=== PATIENT | female | born 2000 | race Caucasian/White ===

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

== ENCOUNTER → 2018-04-30 | Outpatient (CLI) | payer MEDICAID, OTHER | END | disposition home or self-care (01) | LOC: LABWHC1 09:45 | PROVIDERS: ATTEND Internal Medicine Endocrinology, Diabetes & Metabolism | DX: E03.8 Other specified hypothyroidism (principal) | CPT/HCPCS: 36415; 84443 ==

== ENCOUNTER → 2018-05-04 | Outpatient (CLI) | payer MEDICAID ==
--- NOTE | 2018-05-04 11:03 | US ---
EXAMINATION TYPE: US thyroid st tissue head/neck DATE OF EXAM: 05/04/2018 COMPARISON: NONE CLINICAL HISTORY: E03.8 HYPOTHYROIDISM. Patient on thyroid medications. GLAND SIZE: Right Lobe: 3.2 x 1.0 x 1.1 cm Overall Parenchyma: homogenous Left Lobe: 2.7 x 0.9 x 0.8 cm Overall Parenchyma: homogeneous Isthmus Thickness: 0.2 cm NODULES RIGHT: # of nodules measured on right: 0 LEFT: # of nodules measured on left: 0 ISTHMUS: # of nodules measured in the isthmus: 0 Bilateral neck scanned. Prominent lymph node seen in left neck 1.9 x 1.0 x 0.7 cm. IMPRESSION: No distinct abnormality appreciated.
== END | disposition home or self-care (01) ==
LOC: RADUSWWP 10:30
PROVIDERS: ATTEND Internal Medicine Endocrinology, Diabetes & Metabolism
DX: E03.8 Other specified hypothyroidism (principal)
CPT/HCPCS: 76536

== ENCOUNTER → 2018-10-05 | Outpatient (CLI) | payer MEDICAID, OTHER ==
[2018-10-05 20:08] LABS: T4, Free (Free Thyroxine) 1.1 ng/dL (0.83-1.43)
== END | disposition home or self-care (01) ==
LOC: LABWHC1 11:30
PROVIDERS: ATTEND Internal Medicine Endocrinology, Diabetes & Metabolism
DX: E03.9 Hypothyroidism, unspecified (principal)
CPT/HCPCS: 36415; 84439; 84443

== ENCOUNTER → 2019-11-26 | Outpatient (CLI) | payer MEDICAID, OTHER ==
[2019-11-26 16:06] LABS: T4, Free (Free Thyroxine) 1.4 ng/dL (0.80-1.80)
== END | disposition home or self-care (01) ==
LOC: LABWHC1 09:49
PROVIDERS: ATTEND Internal Medicine
DX: E03.9 Hypothyroidism, unspecified (principal)
CPT/HCPCS: 36415; 84439; 84443

== ENCOUNTER → 2021-02-26 | Outpatient (CLI) | payer MEDICAID, OTHER ==
[2021-02-27 12:39] LABS: T4, Free (Free Thyroxine) 1.2 ng/dL (0.80-1.80)
== END | disposition home or self-care (01) ==
LOC: LABWHC1 16:26
PROVIDERS: ATTEND Internal Medicine
DX: E03.9 Hypothyroidism, unspecified (principal)
CPT/HCPCS: 36415; 84439; 84443

== ENCOUNTER → 2021-02-26 | Outpatient (CLI) | payer MEDICAID, OTHER ==
[2021-02-26 23:34] LABS: HCT 46.4 % (37.2-46.3); HGB 14.2 g/dL (12.0-15.0); MCH 27.7 pg (27.0-32.0); MCHC 30.6 g/dL (32.0-37.0); MCV 90.6 fL (80.0-97.0); Mean Platelet Volume 12.2 fL (9.5-12.2); Platelet Count 211 X 10*3/uL (140-440); RBC 5.12 X 10*6/uL (4.10-5.20); RDW 13.2 % (11.5-14.5); WBC 7.01 X 10*3/uL (4.50-10.00)
== END | disposition home or self-care (01) ==
LOC: LABWHC1 16:20
PROVIDERS: ATTEND Pediatrics
DX: Z01.812 Encounter for preprocedural laboratory examination (principal)
CPT/HCPCS: 36415; 85027

== ENCOUNTER 2021-03-01 06:30 | Day surgery (SDC) | payer MEDICAID, OTHER ==
[~2021-03-01 06:30] MED LIST changes: -DEXAMETHASONE SOD PHOSPHATE 10 MG/ML 1 ML VIAL IV ONE; +DEXAMETHASONE SOD PHOSPHATE 4 MG/ML 1 ML VIAL IV ONE; +HYDROmorphone 0.5 MG/0.5 ML SYRINGE IVP PRN; -HYDROmorphone 1 MG/ML 1 ML SYRINGE IVP PRN; +LIDOCAINE 1% (10MG/ML) FOR IV START INTRADERMA PRN; -LIDOCAINE 1% 20 ML VIAL (10MG/ML) FOR IV START INTRADERMA PRN; -SCOPOLAMINE 1.5MG/72HR PATCH TRANSDERM ONE; +metroNIDAZOLE-NS PMX 500 MG in SALINE 1 100ML.BAG IVPB PRN
[2021-03-01] MEDS ORDERED: DEXAMETHASONE SOD PHOSPHATE 10 MG/ML 1 ML VIAL ONE (07:30)
[2021-03-01] MEDS ORDERED: ONDANSETRON 4 MG/2 ML VIAL ONE (07:30)
[2021-03-01] MEDS ORDERED: SUCCINYLCHOLINE CHLORIDE 100 MG/5 ML SYR IV ONE (07:30)
[2021-03-01] MEDS ORDERED: fentaNYL (PF) 50 MCG/ML 2 ML AMP ONE (07:30)
[2021-03-01] MEDS ORDERED: PROPOFOL 10 MG/ML 20 ML VIAL IV ONE (07:30)
[2021-03-01] MEDS ORDERED: LACTATED RINGERS 1,000 ML IV ONE (07:35)
[2021-03-01 09:29] VITALS: TEMP 96.8
--- NOTE | 2021-03-01 10:01 | P.GSCN ---
History of Present Illness Consult date: 03/01/21 Reason for Consult: -Periodic exam -4 BWS -5 PA of wisdom teeth and #9 -#9 RCT. Filed to ML2, rinsed with NAOCL, dried with Paper Points -#9 Final Fill with Junaid Percha size ML2, 17 mm. -#9 Post & Core with Filteck Wheelwright shade A2 and Post size #2 -#9 2 pins placed Post op Rx called for Amoxicillin liquid form equivalent to 500mg, QID for one week. Citanest Forte 4% 1 carpule local infiltration given in #9 area. Pt's father asked to check occlusion for us as we were unable to do in OR due to intubation. He will call if there is any pain por concern, or if he find #9 high on occlusion. 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 AMBulatory but IS MORE COMFORTABLE IN WHEEL CHAIR IF WALKING LONG DISTANCES. Scarring to skins- picks at skin. BORN WITH SMALL KIDNEYS, FUNCTIONINAL AT ACCEPTABLE LEVELS. History of Any Multi-Drug Resistant Organisms: None Reported Past Surgical History: Adenoidectomy, Hernia Repair, Tonsillectomy Additional Past Surgical History / Comment(s): dental procedures,Kidney studies and ct's,brain scans under anesthesia Past Anesthesia/Blood Transfusion Reactions: Family History of Problems w/ Anesthesia, Motion Sickness, Postoperative Nausea & Vomiting (PONV) Additional Past Anesthesia/Blood Transfusion Reaction / Comm: In past has had lethal breath holding episodes after anesthesia-has had dental procedures here at [facility] without problems in past,no blood transfusion hx,mother has ponv Additional Psychological History / Comment(s): Developmental/Global Delays Smoking Status: Never smoker Past Alcohol Use History: None Reported Past Drug Use History: None Reported - Past Family History Mother Family Medical History: No Reported History Father Additional Family Medical History / Comment(s): heart problems Medications and Allergies Home Medications Medication Instructions Recorded Confirmed Type Ascorbic Acid [Vitamin C] 500 mg PO DAILY 02/25/17 03/01/21 History Potassium 99 mg PO DAILY 02/25/17 03/01/21 History Levothyroxine Sodium 88 mcg PO QAM 02/25/21 03/01/21 History Zinc 1 tab PO DAILY 02/25/21 03/01/21 History Allergies Allergy/AdvReac Type Severity Reaction Status Date / Time adhesive Allergy skin Verified 03/01/21 06:53 irritation latex Allergy red skin Verified 03/01/21 06:53 Surgical - Exam Vital Signs Temp Pulse Resp BP Pulse Ox 98.3 F 85 18 162/91 97 03/01/21 06:51 03/01/21 06:51 03/01/21 06:51 03/01/21 06:51 03/01/21 06:51
[2021-03-01 10:57] VITALS: BP 139/72; PULSE 59; RESP 20
== END 2021-03-01 11:25 | disposition home or self-care (01) ==
LOC: OR 06:30
PROVIDERS: ATTEND Dentist
DX: K01.1 Impacted teeth (principal); J45.909 Unspecified asthma, uncomplicated; E07.9 Disorder of thyroid, unspecified; Q91.7 Trisomy 13, unspecified; Z79.899 Other long term (current) drug therapy
CPT/HCPCS: 41899; 81025; J1100; J2405; J3010; J0330; J2704

== ENCOUNTER → 2022-02-03 | Outpatient (CLI) | payer MEDICAID, OTHER | END | disposition home or self-care (01) | LOC: LABWHC1 13:22 | PROVIDERS: ATTEND Internal Medicine | DX: E03.9 Hypothyroidism, unspecified (principal); E55.9 Vitamin D deficiency, unspecified | CPT/HCPCS: 36415; 82306; 84443 ==

== ENCOUNTER → 2023-04-14 | Outpatient (CLI) | payer MEDICAID, OTHER ==
[2023-04-14 11:38] LABS: Basophils % (A) 0 %; Eosinophils # (A) 0.1 k/uL (0-0.7); Eosinophils % (A) 1 %; HCT 48.5 % (34.0-46.0); HGB 15.3 gm/dL (11.4-16.0); Hypochromasia Slight; Lymphocytes # (A) 1.8 k/uL (1.0-4.8); Lymphocytes % (A) 30 %; MCHC 31.5 g/dL (31.0-37.0); MCV 89.1 fL (80.0-100.0); Mean Platelet Volume 8.9; Monocytes # (A) 0.3 k/uL (0-1.0); Monocytes % (A) 5 %; Neutrophils # (A) 3.9 k/uL (1.3-7.7); Neutrophils % (A) 62 %; Platelet Count 164 k/uL (150-450); RBC 5.44 m/uL (3.80-5.40); RDW 14.7 % (11.5-15.5); WBC 6.2 k/uL (3.8-10.6)
[2023-04-14 12:03] LABS: ALT 22 U/L (4-34); AST 29 U/L (14-36); African American GFR (CKD) >90 (>60 ml/min/1.73 sqM); Albumin 4.5 g/dL (3.5-5.0); Albumin/Globulin Ratio 1.3; Alkaline Phosphatase 87 U/L (38-126); Anion Gap 12 mmol/L; Blood Urea Nitrogen 23 mg/dL (7-17); Calcium 9.1 mg/dL (8.4-10.2); Carbon Dioxide 25 mmol/L (22-30); Chloride 103 mmol/L (98-107); Globulin 3.6 g/dL; Glucose 81 mg/dL (74-99); Non-African American GFR(CKD) 88 (>60 ml/min/1.73 sqM); Potassium 4.1 mmol/L (3.5-5.1); Sodium 140 mmol/L (137-145); Total Bilirubin 0.4 mg/dL (0.2-1.3); Total Protein 8.1 g/dL (6.3-8.2)
[2023-04-14 12:17] LABS: T4, Free (Free Thyroxine) 1.13 ng/dL (0.78-2.19)
[2023-04-14 17:26] LABS: Ferritin 25.9 ng/mL (10.0-291.0)
== END | disposition home or self-care (01) ==
LOC: LABWHC1 10:33
PROVIDERS: ATTEND Internal Medicine
DX: E03.9 Hypothyroidism, unspecified (principal); E66.8 Other obesity; E55.9 Vitamin D deficiency, unspecified
CPT/HCPCS: 36415; 80053; 82306; 82728; 83036; 84439; 84443; 85025

== ENCOUNTER 2024-01-20 19:59 | Emergency (ER) | payer MEDICAID, OTHER ==
[2024-01-20 20:14] VITALS: BP 161/99; PULSE 82; RESP 18; TEMP 99.4
--- NOTE | 2024-01-20 21:04 | ED ---
General Adult HPI - General Chief complaint: Recheck/Abnormal Lab/Rx Stated complaint: poss cellulitis, sent by [facility] Time Seen by Provider: 01/20/24 20:18 Source: patient, family, RN notes reviewed Mode of arrival: ambulatory Limitations: no limitations - History of Present Illness Initial comments: 23-year-old female presents to the emergency department for evaluation of left lower extremity swelling and redness. Patient was sent in by urgent care. Jd rosario's family states that she had an injury to this leg 10 days ago which has been healing well. They state that last night they noticed some redness and warmth to the leg. Denies fever, chills, nausea, vomiting. No known medication allergies. - Related Data Home Medications Medication Instructions Recorded Confirmed Ascorbic Acid [Vitamin C] 500 mg PO DAILY 02/25/17 03/01/21 Potassium 99 mg PO DAILY 02/25/17 03/01/21 Levothyroxine Sodium 88 mcg PO QAM 02/25/21 03/01/21 Zinc 1 tab PO DAILY 02/25/21 03/01/21 Previous Rx's Medication Instructions Recorded cephALEXin [Keflex Oral Susp] 500 mg PO Q6HR #400 ml 01/20/24 Allergies Allergy/AdvReac Type Severity Reaction Status Date / Time adhesive Allergy skin Verified 01/20/24 20:14 irritation latex Allergy red skin Verified 01/20/24 20:14 Review of Systems ROS Statement: Those systems with pertinent positive or pertinent negative responses have been documented in the HPI. ROS Other: All systems not noted in ROS Statement are negative. 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 AMBulatory but IS MORE COMFORTABLE IN WHEEL CHAIR IF WALKING LONG DISTANCES. Scarring to skins- picks at skin. BORN WITH SMALL KIDNEYS, FUNCTIONINAL AT ACCEPTABLE LEVELS. History of Any Multi-Drug Resistant Organisms: None Reported Past Surgical History: Adenoidectomy, Hernia Repair, Tonsillectomy Additional Past Surgical History / Comment(s): dental procedures,Kidney studies and ct's,brain scans under anesthesia Past Anesthesia/Blood Transfusion Reactions: Family History of Problems w/ Anesthesia, Motion Sickness, Postoperative Nausea & Vomiting (PONV) Additional Past Anesthesia/Blood Transfusion Reaction / Comment(s): In past has had lethal breath holding episodes after anesthesia-has had dental procedures here at [facility] without problems in past,no blood transfusion hx,mother has ponv Past Psychological History: No Psychological Hx Reported Smoking Status: Never smoker Past Alcohol Use History: None Reported Past Drug Use History: None Reported - Past Family History Mother Family Medical History: No Reported History Father Additional Family Medical History / Comment(s): heart problems General Exam Limitations: no limitations General appearance: alert, in no apparent distress Head exam: Present: atraumatic, normocephalic, normal inspection Eye exam: Present: normal appearance, PERRL, EOMI. Absent: scleral icterus, conjunctival injection, periorbital swelling Neck exam: Present: normal inspection. Absent: tenderness, meningismus, lymphad enopathy Respiratory exam: Present: normal lung sounds bilaterally. Absent: respiratory distress, wheezes, rales, rhonchi, stridor Cardiovascular Exam: Present: regular rate, normal rhythm, normal heart sounds. Absent: systolic murmur, diastolic murmur, rubs, gallop, clicks Extremities exam: Present: full ROM, normal capillary refill, other (distal pulses 2+, erythematous lesion on left leg). Absent: tenderness Neurological exam: Present: alert, oriented X3 Psychiatric exam: Present: normal affect, normal mood Skin exam: Present: warm, dry, intact, erythema. Absent: rash Course Vital Signs 01/20/24 20:07 Temperature 99.4 F Pulse Rate 82 Respiratory 18 Rate Blood Pressure 161/99 O2 Sat by Pulse 94 L Oximetry Medical Decision Making - Medical Decision Making Was pt. sent in by a medical professional or institution (, PA, MILITARY TECHNOLOGY MANAGER, urgent care, hospital, or [facility]...) When possible be specific @ -Patient sent in by urgent care Did you speak to anyone other than the patient for history (EMS, parent, family, police, friend...)? What history was obtained from this source @ -Patient's family provided history for this patient Did you review nursing and triage notes (agree or disagree)? Why? @ -I reviewed and agree with nursing and triage notes Were old charts reviewed (outside hosp., previous admission, EMS record, old EKG, old radiological studies, urgent care reports/EKG's, [facility] records)? Report findings @ -No old charts were reviewed Differential Diagnosis (chest pain, altered mental status, abdominal pain women, abdominal pain men, vaginal bleeding, weakness, fever, dyspnea, syncope, h eadache, dizziness, GI bleed, back pain, seizure, CVA, palpatations, mental health, musculoskeletal)? @ -Differential Musculoskeletal Muscular strain, contusion, ligament sprain, fracture, arthritis, septic arthritis, bursitis, cellulitis, muscle spasm, nerve compression, DVT, arterial occlusion, herpes zoster, electrolyte abnormality, tumor.... This is not meant to be in all inclusive list EKG interpreted by me (3pts min.). @ -None X-rays interpreted by me (1pt min.). @ -None done CT interpreted by me (1pt min.). @ -None done U/S interpreted by me (1pt. min.). @ -Ultrasound of the left lower extremity obtained shows no evidence of acute DVT What testing was considered but not performed or refused? (CT, X-rays, U/S, labs)? Why? @ -None What meds were considered but not given or refused? Why? @ -None Did you discuss the management of the patient with other professionals (professionals i.e. , PA, MILITARY TECHNOLOGY MANAGER, lab, RT, psych nurse, social problems specialist, reinforced ironworker, teacher, lead security officer, rifle case repairer)? Give summary @ -No Was smoking cessation discussed for >3mins.? @ -No Was critical care preformed (if so, how long)? @ -No Were there social determinants of health that impacted care today? How? (Homelessness, low income, unemployed, alcoholism, drug addiction, transportation, low edu. Level, literacy, decrease access to med. care, usp, rehab)? @ -No Was there de-escalation of care discussed even if they declined (Discuss DNR or withdrawal of care, Hospice)? DNR status @ -No What co-morbidities impacted this encounter? (DM, HTN, Smoking, COPD, CAD, Cancer, CVA, ARF, Chemo, Hep., AIDS, mental health diagnosis, sleep apnea, morbid obesity)? @ -None Was patient admitted / discharged? Hospital course, mention meds given and route, prescriptions, significant lab abnormalities, going to OR and other pertinent info. @ -Discharged. Patient presented to the emergency department with family for evaluation of left lower extremity redness and swelling. Laboratory studies were obtained. There is no significant leukocytosis, no lactic acidosis. An ultrasound of the left lower extremity was obtained which shows no evidence of acute DVT. History and physical examination consistent with cellulitis. Patient will be treated on an outpatient basis. Patient and family expressed understanding of this and in agreement with plan. Patient stable at time of discharge. Case discussed with Dr. De Santiago Undiagnosed new problem with uncertain prognosis? @ -No Drug Therapy requiring intensive monitoring for toxicity (Heparin, Nitro, Insulin, Cardizem)? @ -No Were any procedures done? @ -No Diagnosis/symptom? @ -Cellulitis Acute, or Chronic, or Acute on Chronic? @ -acute Uncomplicated (without systemic symptoms) or Complicated (systemic symptoms)? @ -uncomplicated Side effects of treatment? @ -No Exacerbation, Progression, or Severe Exacerbation? @ -No Poses a threat to life or bodily function? How? (Chest pain, USA, MS, pneumonia, PE, COPD, DKA, ARF, appy, cholecystitis, CVA, Diverticulitis, Homicidal, Suicidal, threat to staff... and all critical care pts) @ -No - Lab Data Result diagrams: 01/20/24 20:43 01/20/24 20:43 Lab Results 01/20/24 01/20/24 01/20/24 Range/Units 20:43 20:43 20:43 WBC 8.7 (3.8-10.6) k/uL RBC 5.09 (3.80-5.40) m/uL Hgb 14.1 (11.4-16.0) gm/dL Hct 46.1 H (34.0-46.0) % MCV 90.7 (80.0-100.0) fL MCH 27.7 (25.0-35.0) pg MCHC 30.5 L (31.0-37.0) g/dL RDW 14.7 (11.5-15.5) % Plt Count 211 (150-450) k/uL MPV 9.1 Neutrophils % 61 % Lymphocytes % 28 % Monocytes % 5 % Eosinophils % 2 % Basophils % 1 % Neutrophils # 5.3 (1.3-7.7) k/uL Lymphocytes # 2.5 (1.0-4.8) k/uL Monocytes # 0.5 (0-1.0) k/uL Eosinophils # 0.2 (0-0.7) k/uL Basophils # 0.1 (0-0.2) k/uL Sodium 142 (137-145) mmol/L Potassium 4.6 (3.5-5.1) mmol/L Chloride 107 (98-107) mmol/L Carbon Dioxide 28 (22-30) mmol/L Anion Gap 7 mmol/L BUN 24 H (7-17) mg/dL Creatinine 0.88 (0.52-1.04) mg/dL Est GFR (CKD-EPI)AfAm >90 (>60 ml/min/1.73 sqM) Est GFR (CKD-EPI)NonAf >90 (>60 ml/min/1.73 sqM) Glucose 89 (74-99) mg/dL Plasma Lactic Acid Nilson 1.1 (0.7-2.0) mmol/L Calcium 9.1 (8.4-10.2) mg/dL Total Bilirubin 0.5 (0.2-1.3) mg/dL AST 46 H (14-36) U/L ALT 31 (4-34) U/L Alkaline Phosphatase 76 (38-126) U/L Total Protein 7.7 (6.3-8.2) g/dL Albumin 4.4 (3.5-5.0) g/dL Disposition Clinical Impression: Cellulitis Disposition: HOME SELF-CARE Condition: Stable Instructions (If sedation given, give patient instructions): Cellulitis (ED) Additional Instructions: Please diamond picker antibiotics and take to completion. Follow up with your primary care provider. Return to the emergency department for new or worsening symptoms. Prescriptions: cephALEXin [Keflex Oral Susp] 500 mg PO Q6HR #400 ml Is patient prescribed a controlled substance at d/c from ED?: No Referrals: Suzanne Garcia MD [Primary Care Provider] - 1-2 days
[2024-01-20 21:06] LABS: Basophils # (A) 0.1 k/uL (0-0.2); Basophils % (A) 1 %; Eosinophils # (A) 0.2 k/uL (0-0.7); Eosinophils % (A) 2 %; HCT 46.1 % (34.0-46.0); HGB 14.1 gm/dL (11.4-16.0); Lymphocytes # (A) 2.5 k/uL (1.0-4.8); Lymphocytes % (A) 28 %; MCH 27.7 pg (25.0-35.0); MCHC 30.5 g/dL (31.0-37.0); MCV 90.7 fL (80.0-100.0); Mean Platelet Volume 9.1; Monocytes # (A) 0.5 k/uL (0-1.0); Monocytes % (A) 5 %; Neutrophils # (A) 5.3 k/uL (1.3-7.7); Neutrophils % (A) 61 %; Platelet Count 211 k/uL (150-450); RBC 5.09 m/uL (3.80-5.40); RDW 14.7 % (11.5-15.5); WBC 8.7 k/uL (3.8-10.6)
[2024-01-20 21:32] LABS: ALT 31 U/L (4-34); African American GFR (CKD) >90 (>60 ml/min/1.73 sqM); Anion Gap 7 mmol/L; Blood Urea Nitrogen 24 mg/dL (7-17); Calcium 9.1 mg/dL (8.4-10.2); Carbon Dioxide 28 mmol/L (22-30); Chloride 107 mmol/L (98-107); Glucose 89 mg/dL (74-99); Non-African American GFR(CKD) >90 (>60 ml/min/1.73 sqM); Sodium 142 mmol/L (137-145); Total Bilirubin 0.5 mg/dL (0.2-1.3)
[2024-01-20 21:35] LABS: AST 46 U/L (14-36); Albumin 4.4 g/dL (3.5-5.0); Alkaline Phosphatase 76 U/L (38-126); Potassium 4.6 mmol/L (3.5-5.1); Total Protein 7.7 g/dL (6.3-8.2)
--- NOTE | 2024-01-20 21:38 | US ---
EXAMINATION TYPE: US venous doppler duplex LE LT DATE OF EXAM: 01/20/2024 9:29 PM COMPARISON: NONE CLINICAL INDICATION: Female, 23 years old with history of redness, swelling; gash to left knee after fall 10 days ago, swelling, redness, no h/o dvt, h/o Trisomy 13 SIDE PERFORMED: Left TECHNIQUE: The lower extremity deep venous system is examined utilizing real time linear array sonog riley with graded compression, doppler sonography and color-flow sonography. VESSELS IMAGED: Common Femoral Vein Deep Femoral Vein Greater Saphenous Vein * Femoral Vein Popliteal Vein Small Saphenous Vein * Proximal Calf Veins (* superficial vessels) no compression images within thigh due to patient's tolerance for pressure, good color flow and dop pler seen Left Leg: Negative for DVT IMPRESSION: Grayscale, color doppler, spectral doppler imaging performed of the deep veins of the lo wer extremities. There is normal flow, compressibility, vascular waveforms.
[2024-01-20] MEDS ORDERED: CEPHALEXIN 500MG STARTER PACK 4 CAP BTL PO STA (23:11)
== END 2024-01-20 23:14 | disposition home or self-care (01) ==
LOC: EC 19:59
DX: L03.116 Cellulitis of left lower limb (principal); Z91.040 Latex allergy status; Z91.048 Other nonmedicinal substance allergy status
CPT/HCPCS: 36415; 80053; 83605; 85025; 99284

== ENCOUNTER → 2024-04-13 | Outpatient (CLI) | payer MEDICAID, OTHER ==
[2024-04-13 23:52] LABS: T4, Free (Free Thyroxine) 1.06 ng/dL (0.80-1.80)
== END | disposition home or self-care (01) ==
LOC: LABWHC1 11:20
PROVIDERS: ATTEND Internal Medicine
DX: E03.9 Hypothyroidism, unspecified (principal); E55.9 Vitamin D deficiency, unspecified
CPT/HCPCS: 36415; 82306; 84439; 84443

== ENCOUNTER 2024-05-06 18:41 | Emergency (ER) | payer MEDICAID, OTHER ==
[2024-05-06 19:07] VITALS: RESP 18; TEMP 97.9
--- NOTE | 2024-05-06 19:35 | ED ---
GI Bleed HPI - General Source: family Mode of arrival: wheelchair Limitations: language barrier, altered mental status, physical limitation <DuyenAndersonpaola - Last Filed: 05/06/24 19:33> <Dennise Stevens - Last Filed: 05/07/24 00:22> - General Chief complaint: GI Bleed Stated complaint: Vomiting, in pain Time Seen by Provider: 05/06/24 19:33 - History of Present Illness Initial comments: 24-year-old female brought in by her parents with chief complaint of vomiting. Patient has been vomiting frequently throughout the day, emesis resembles coffee grounds, and at times she has a teaspoon worth of blood as well. Patient seems to be in pain, they tried pushing on her abdomen which did not seem to elicit a response from her earlier. No fevers. Patient has recently been dealing with a cold. 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 Per mom the patient has been vomiting since 3 PM. The first episode was a schoolbus. When she got home the mother noticed that the emesis contained what appeared to be blood. She has been having vomiting every 5 minutes since that time. Emesis is redbrown in coloration. The patient is unable to convey when she is in pain. M other states that she has been shaking her head yes however this is very typical behavior for her to say yes to any questioning. They did not give her anything for the nausea. They state that the patient appears to be uncomfortable. No reported fevers. Denies history of this in the past. No history of gastritis or gastric ulcers. Patient does not take NSAIDs or drink alcohol. No work of breathing. 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 They deny any black or bloody stools. No diarrhea. No other alleviating, precipitating or modifying factors (Dennise Stevens) - Related Data Home Medications Medication Instructions Recorded Confirmed Ascorbic Acid [Vitamin C] 500 mg PO DAILY 02/25/17 03/01/21 Potassium 99 mg PO DAILY 02/25/17 03/01/21 Levothyroxine Sodium 88 mcg PO QAM 02/25/21 03/01/21 Zinc 1 tab PO DAILY 02/25/21 03/01/21 Previous Rx's Medication Instructions Recorded cephALEXin [Keflex Oral Susp] 500 mg PO Q6HR #400 ml 01/20/24 Allergies Allergy/AdvReac Type Severity Reaction Status Date / Time adhesive Allergy skin Verified 01/20/24 20:14 irritation latex Allergy red skin Verified 01/20/24 20:14 Review of Systems ROS Other: All systems not noted in ROS Statement are negative. <Edilson Geller - Last Filed: 05/06/24 19:33> ROS Other: All systems not noted in ROS Statement are negative. <Dennise Stevens - Last Filed: 05/07/24 00:22> ROS Statement: Those systems with pertinent positive or pertinent negative responses have been documented in the HPI. 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 AMBulatory but IS MORE COMFORTABLE IN WHEEL CHAIR IF WALKING LONG DISTANCES. Scarring to skins- picks at skin. BORN WITH SMALL KIDNEYS, FUNCTIONINAL AT ACCEPTABLE LEVELS. History of Any Multi-Drug Resistant Organisms: None Reported Past Surgical History: Adenoidectomy, Hernia Repair, Tonsillectomy Additional Past Surgical History / Comment(s): dental procedures,Kidney studies and ct's,brain scans under anesthesia Past Anesthesia/Blood Transfusion Reactions: Family History of Problems w/ Anesthesia, Motion Sickness, Postoperative Nausea & Vomiting (PONV) Additional Past Anesthesia/Blood Transfusion Reaction / Comment(s): In past has had lethal breath holding episodes after anesthesia-has had dental procedures here at [facility] without problems in past,no blood transfusion hx,mother has ponv Past Psychological History: No Psychological Hx Reported Smoking Status: Never smoker Past Alcohol Use History: None Reported Past Drug Use History: None Reported - Past Family History Mother Family Medical History: No Reported History Father Additional Family Medical History / Comment(s): heart problems <Edilson Geller - Last Filed: 05/06/24 19:33> General Exam Limitations: language barrier, altered mental status, physical limitation <Edilson Geller - Last Filed: 05/06/24 19:33> Limitations: language barrier General appearance: alert, in distress Head exam: Present: atraumatic, normocephalic, normal inspection Eye exam: Present: normal appearance, PERRL, EOMI. Absent: scleral icterus, conjunctival injection, periorbital swelling ENT exam: Present: mucous membranes moist, other (Blood streaking on the patient's tongue. No epistaxis) Neck exam: Present: normal inspection. Absent: tenderness, meningismus, lymphadenopathy Respiratory exam: Present: normal lung sounds bilaterally. Absent: respiratory distress, wheezes, rales, rhonchi, stridor Cardiovascular Exam: Present: regular rate, normal rhythm, normal heart sounds. Absent: systolic murmur, diastolic murmur, rubs, gallop, clicks GI/Abdominal exam: Present: soft, tenderness (Appears to be generalized) Rectal exam: Present: deferred Extremities exam: Present: normal inspection, full ROM, normal capillary refill. Absent: tenderness, pedal edema, joint swelling, calf tenderness Neurological exam: Present: alert Psychiatric exam: Present: flat affect <Dennise Stevens - Last Filed: 05/07/24 00:22> - General Exam Comments Initial Comments: Visual Physical Exam Vital signs reviewed General: no acute distress. Head: Normocephalic, atraumatic Eyes: PERRLA, EOMI ENT: Airway patent Chest: Nonlabored breathing Skin: No visual rash, normal skin tone Neuro: Alert, orientation at baseline with history of cognitive delay Musculoskeletal: No gross abnormalities (Edilson Geller) Course Vital Signs 05/06/24 19:01 Temperature 97.9 F Pulse Rate 82 Respiratory 18 Rate Blood Pressure 156/85 O2 Sat by Pulse 97 Oximetry Medical Decision Making <Edilson Geller - Last Filed: 05/06/24 19:33> - Lab Data Result diagrams: 05/06/24 21:20 05/06/24 21:20 <Dennise Stevens - Last Filed: 05/07/24 00:22> - Medical Decision Making I performed the quick note portion of this visit, electronically signed Edilson Geller PA-C (Edilson Geller) Was pt. sent in by a medical professional or institution ([facility] Avalos, CREW TRUCK DRIVER, urgent ca re, hospital, or retirement...) When possible be specific @ -No Did you speak to anyone other than the patient for history (EMS, parent, family, police, friend...)? What history was obtained from this source @ -Spoke with the parents for history Did you review nursing and triage notes (agree or disagree)? Why? @ -I reviewed and agree with nursing and triage notes Were old charts reviewed (outside hosp., previous admission, EMS record, old EKG, old radiological studies, urgent care reports/EKG's, retirement records)? Report findings @ -No old charts were reviewed Differential Diagnosis (chest pain, altered mental status, abdominal pain women, abdominal pain men, vaginal bleeding, weakness, fever, dyspnea, syncope, headache, dizziness, GI bleed, back pain, seizure, CVA, palpatations, mental health, musculoskeletal)? @ -Differential GI Bleed: Esophageal varices, aortoenteric fistula, Danna-Darden, gastritis, peptic ulcer disease, diverticulosis, inflammatory bowel disease, hemorrhoids, fissure, colitis, malignancy, Meckel's diverticulum, this is not meant to be an all-inc lusive list. EKG interpreted by me (3pts min.). @ -Not done X-rays interpreted by me (1pt min.). @ -Yes and demonstrates moderate stool burden CT interpreted by me (1pt min.). @ -None done U/S interpreted by me (1pt. min.). @ -None done What testing was considered but not performed or refused? (CT, X-rays, U/S, labs)? Why? @ -CT was considered however patient will need direct visualization of therefore will benefit from transfer What meds were considered but not given or refused? Why? @ -None Did you discuss the management of the patient with other professionals (professionals i.e. , PA, CREW TRUCK DRIVER, lab, RT, psych nurse, social psychologist, firestopper technician, teacher, conservation enforcement officer, correctional casework specialist)? Give summary @ -Spoke with Dr. Dc who does accept transfer of the patient Was smoking cessation discussed for >3mins.? @ -No Was critical care preformed (if so, how long)? @ -No Were there social determinants of health that impacted care today? How? (Homelessness, low income, unemployed, alcoholism, drug addiction, transportation, low edu. Level, literacy, decrease access to med. care, senior living, rehab)? @ -Patient is nonverbal Was there de-escalation of care discussed even if they declined (Discuss DNR or withdrawal of care, Hospice)? DNR status @ -No What co-morbidities impacted this encounter? (DM, HTN, Smoking, COPD, CAD, Cancer, CVA, ARF, Chemo, Hep., AIDS, mental health diagnosis, sleep apnea, morbid obesity)? @ -Ring chromosome 13 Was patient admitted / discharged? Hospital course, mention meds given and route, prescriptions, significant lab abnormalities, going to OR and other per tinent info. @ -Upon arrival patient seen and evaluated in room 3. Thorough history and physical exam was performed. Patient does appear uncomfortable. She is actively vomiting. IV was established and she was given Zofran 4 mg. Laboratory studies are conducted and abdominal x-ray was performed. I did discuss the results to the patient and her parents. Patient continues to have emesis. She was given 80 mg of Protonix, 10 mg of Reglan, 25 mg of Benadryl and 1000 mg of Tylenol. I did recommend transfer for which the parents were agreeable. I called and spoke with [facility]. I spoke with Dr. Dc, the GI specialist. He was agreeable to the transfer. Accepting ER ph ysician is Dr. Bose. Patient did remain hemodynamically stable. COBRA forms are signed by her parents and the patient is transferred in stable condition Undiagnosed new problem with uncertain prognosis? @ -Yes Drug Therapy requiring intensive monitoring for toxicity (Heparin, Nitro, Insulin, Cardizem)? @ -No Were any procedures done? @ -No Diagnosis/symptom? @ -Acute hematemesis Acute, or Chronic, or Acute on Chronic? @ -Acute Uncomplicated (without systemic symptoms) or Complicated (systemic symptoms)? @ -Complicated Side effects of treatment? @ -No Exacerbation, Progression, or Severe Exacerbation? @ -No Poses a threat to life or bodily function? How? (Chest pain, USA, MD, pneumonia, PE, COPD, DKA, ARF, appy, cholecystitis, CVA, Diverticulitis, Homicidal, Suicidal, threat to staff... and all critical care pts) @ -Yes as patient does have signs of upper GI bleed (Dennise Stevens) - Lab Data Lab Results 05/06/24 05/06/24 05/06/24 Range/Units 21:20 21:20 21:20 WBC 14.1 H (3.8-10.6) k/uL RBC 5.56 H (3.80-5.40) m/uL Hgb 15.2 (11.4-16.0) gm/dL Hct 48.5 H (34.0-46.0) % MCV 87.2 (80.0-100.0) fL MCH 27.4 (25.0-35.0) pg MCHC 31.4 (31.0-37.0) g/dL RDW 14.7 (11.5-15.5) % Plt Count 170 (150-450) k/uL MPV 8.6 Neutrophils % 89 % Lymphocytes % 7 % Monocytes % 3 % Eosinophils % 1 % Basophils % 0 % Neutrophils # 12.6 H (1.3-7.7) k/uL Lymphocytes # 0.9 L (1.0-4.8) k/uL Monocytes # 0.4 (0-1.0) k/uL Eosinophils # 0.1 (0-0.7) k/uL Basophils # 0.0 (0-0.2) k/uL PT 12.5 (10.0-12.5) sec INR 1.2 H (<1.2) APTT 24.3 (22.0-30.0) sec Sodium 141 (137-145) mmol/L Potassium 4.7 (3.5-5.1) mmol/L Chloride 105 (98-107) mmol/L Carbon Dioxide 27 (22-30) mmol/L Anion Gap 9 mmol/L BUN 19 H (7-17) mg/dL Creatinine 0.91 (0.52-1.04) mg/dL Est GFR (CKD-EPI)AfAm >90 (>60 ml/min/1.73 sqM) Est GFR (CKD-EPI)NonAf 87 (>60 ml/min/1.73 sqM) Glucose 123 H (74-99) mg/dL Lactic Ac Sepsis Rflx Plasma Lactic Acid Nilson (0.7-2.0) mmol/L Calcium 8.8 (8.4-10.2) mg/dL Magnesium 1.9 (1.6-2.3) mg/dL Total Bilirubin 0.7 (0.2-1.3) mg/dL AST 47 H (14-36) U/L ALT 26 (4-34) U/L Alkaline Phosphatase 100 (38-126) U/L Total Protein 8.2 (6.3-8.2) g/dL Albumin 4.5 (3.5-5.0) g/dL Lipase 60 (23-300) U/L Gastric Occult Blood (Negative) 05/06/24 05/06/24 05/06/24 Range/Units 21:20 21:50 22:48 WBC (3.8-10.6) k/uL RBC (3.80-5.40) m/uL Hgb (11.4-16.0) gm/dL Hct (34.0-46.0) % MCV (80.0-100.0) fL MCH (25.0-35.0) pg MCHC (31.0-37.0) g/dL RDW (11.5-15.5) % Plt Count (150-450) k/uL MPV Neutrophils % % Lymphocytes % % Monocytes % % Eosinophils % % Basophils % % Neutrophils # (1.3-7.7) k/uL Lymphocytes # (1.0-4.8) k/uL Monocytes # (0-1.0) k/uL Eosinophils # (0-0.7) k/uL Basophils # (0-0.2) k/uL PT (10.0-12.5) sec INR (<1.2) APTT (22.0-30.0) sec Sodium (137-145) mmol/L Potassium (3.5-5.1) mmol/L Chloride (98-107) mmol/L Carbon Dioxide (22-30) mmol/L Anion Gap mmol/L BUN (7-17) mg/dL Creatinine (0.52-1.04) mg/dL Est GFR (CKD-EPI)AfAm (>60 ml/min/1.73 sqM) Est GFR (CKD-EPI)NonAf (>60 ml/min/1.73 sqM) Glucose (74-99) mg/dL Lactic Ac Sepsis Rflx Y Plasma Lactic Acid Nilson 2.2 H* (0.7-2.0) mmol/L Calcium (8.4-10.2) mg/dL Magnesium (1.6-2.3) mg/dL Total Bilirubin (0.2-1.3) mg/dL AST (14-36) U/L ALT (4-34) U/L Alkaline Phosphatase (38-126) U/L Total Protein (6.3-8.2) g/dL Albumin (3.5-5.0) g/dL Lipase (23-300) U/L Gastric Occult Blood Positive (Negative) Disposition <Edilson Geller - Last Filed: 05/06/24 19:33> Is patient prescribed a controlled substance at d/c from ED?: No Time of Disposition: 00:22 - Out of Hospital Transfer - Req. Specs Out of Hospital Transfer - Requested Specifics: Other Emergency Center ([facility]) <Dennise Stevens - Last Filed: 05/07/24 00:22> Clinical Impression: Hematemesis Disposition: OTHER INSTITUTION NOT DEFINED Condition: Serious Referrals: Suzanne Garcia MD [Primary Care Provider] - 1-2 days
[2024-05-06] MEDS: ONDANSETRON 4 MG/2 ML VIAL IVP STA (21:24)
[2024-05-06 21:30] LABS: Basophils % (A) 0 %; Eosinophils # (A) 0.1 k/uL (0-0.7); Eosinophils % (A) 1 %; HCT 48.5 % (34.0-46.0); HGB 15.2 gm/dL (11.4-16.0); Lymphocytes # (A) 0.9 k/uL (1.0-4.8); Lymphocytes % (A) 7 %; MCH 27.4 pg (25.0-35.0); MCHC 31.4 g/dL (31.0-37.0); MCV 87.2 fL (80.0-100.0); Mean Platelet Volume 8.6; Monocytes # (A) 0.4 k/uL (0-1.0); Monocytes % (A) 3 %; Neutrophils # (A) 12.6 k/uL (1.3-7.7); Neutrophils % (A) 89 %; Platelet Count 170 k/uL (150-450); RBC 5.56 m/uL (3.80-5.40); RDW 14.7 % (11.5-15.5); WBC 14.1 k/uL (3.8-10.6)
[2024-05-06 21:43] LABS: ALT 26 U/L (4-34); AST 47 U/L (14-36); African American GFR (CKD) >90 (>60 ml/min/1.73 sqM); Albumin 4.5 g/dL (3.5-5.0); Alkaline Phosphatase 100 U/L (38-126); Anion Gap 9 mmol/L; Blood Urea Nitrogen 19 mg/dL (7-17); Calcium 8.8 mg/dL (8.4-10.2); Carbon Dioxide 27 mmol/L (22-30); Chloride 105 mmol/L (98-107); Glucose 123 mg/dL (74-99); Lipase 60 U/L (23-300); Magnesium 1.9 mg/dL (1.6-2.3); Non-African American GFR(CKD) 87 (>60 ml/min/1.73 sqM); Sodium 141 mmol/L (137-145); Total Bilirubin 0.7 mg/dL (0.2-1.3); Total Protein 8.2 g/dL (6.3-8.2)
[2024-05-06 21:55] LABS: Potassium 4.7 mmol/L (3.5-5.1)
[2024-05-06 22:02] LABS: INR 1.2 (<1.2); Partial Thromboplastin Time 24.3 sec (22.0-30.0); Prothrombin Time 12.5 sec (10.0-12.5)
--- NOTE | 2024-05-06 22:03 | XR ---
EXAMINATION TYPE: XR KUB DATE OF EXAM: 05/06/2024 9:37 PM COMPARISON: 10/07/2004 CLINICAL INDICATION: Female, 24 years old with history of Hematemesis; [facility] TECHNIQUE: One radiographic view of the abdomen was obtained. FINDINGS: There is a large stool burden, otherwise, the bowel gas pattern is nonspecific without dila shimon loops of small or large bowel. . Fecal material and gas are demonstrated throughout the colon and rectum. There is no evidence for organomegaly or pneumoperitoneum. The osseous structures are intact. No ab normal calcifications are present. IMPRESSION: Large stool burden throughout the colon. Nonspecific bowel gas pattern without radiographic evidence for acute process. [facility], , 05/06/2024 10:01 PM
[2024-05-06] MEDS: diphenhydrAMINE 50 MG/ML 1 ML VIAL IVP STA (23:51)
[2024-05-06] MEDS: PANTOPRAZOLE 40 MG/10 ML VIAL IVP STA (23:54)
[2024-05-06] MEDS: METOCLOPRAMIDE 5 MG/ML 2 ML VIAL IVP STA (23:58)
[2024-05-07] MEDS: ACETAMINOPHEN IV (For NPO) 1,000 MG in EMPTY BAG 1 BAG IVPB STA (00:02)
[2024-05-07 02:02] VITALS: BP 151/82; PULSE 110
== END 2024-05-07 02:02 | disposition other institution (70) ==
LOC: EC 18:41
CPT/HCPCS: 36415; 74018; 80053; 82271; 83605; 83690; 83735; 85025; 85610; 85730; 96365; 96375; 99285